=== PATIENT | female | born 1960 | race Caucasian/White ===

== ENCOUNTER → 2021-11-27 | Outpatient (CLI) | payer BC ==
[~2021-11-27] MED LIST: OMNICEF 300 MG300 MG PO
== END ==
LOC: HEART 5 11-13 13:30
DX: I73.9 Peripheral vascular disease, unspecified (principal)

== ENCOUNTER → 2022-03-03 | Outpatient (CLI) | payer BC | LOC: EXRD 08:34 → US 10:00 | DX: R10.31 Right lower quadrant pain (principal); R10.11 Right upper quadrant pain | CPT/HCPCS: 76700; 76856 ==